=== PATIENT | male | born 1950 | race Caucasian/White ===

== ENCOUNTER 2019-01-31 11:11 | Emergency (ER) | payer OTHER, MEDICAID ==
[~2019-01-31] VITALS: Ht 175.3 cm; Wt 100.7 kg
[2019-01-31] MEDS ORDERED: HYDROCHLOROTH12.5 M1 PO (11:26)
[2019-01-31] MEDS ORDERED: MOBIC7.5 MG PO (12:27)
[2019-01-31 12:36] VITALS: BP 156/96
== END 2019-01-31 12:38 | disposition home or self-care (01) ==
LOC: M.ERS 11:11
DX: M19.90 Unspecified osteoarthritis, unspecified site (principal)